=== PATIENT | female | born 1970 | race American Indian/Alaskan Native ===

== ENCOUNTER 2020-06-26 22:10 | Emergency (ER) | payer SELFPAY ==
--- NOTE | 2020-06-27 01:45 | XRay Report ---
CERVICAL SPINE 4 VIEWS INDICATION / CLINICAL INFORMATION: neck pain. COMPARISON: None available. FINDINGS: No fracture, subluxation or other significant abnormality. Signer Name: Kamran Myers MD Signed: 06/27/2020 1:40 AM Workstation Name: [id number]
--- NOTE | 2020-06-27 01:50 | XRay Report ---
LUMBAR SPINE 3 VIEWS INDICATION / CLINICAL INFORMATION: lower back pain. COMPARISON: None available. FINDINGS: The first sacral vertebra is somewhat of a transitional vertebra. No fracture, subluxation or other s ignificant abnormality. Signer Name: Kamran Myers MD Signed: 06/27/2020 1:46 AM Workstation Name: [id number]
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
--- NOTE | 2020-06-27 02:00 | XRay Report ---
LEFT LOWER LEG 4 VIEWS INDICATION / CLINICAL INFORMATION: Left leg pain. COMPARISON: None available. FINDINGS: No skeletal abnormality. No obvious soft tissue lesions. Signer Name: Kamran Myers MD Signed: 06/27/2020 1:56 AM Workstation Name: [id number]
--- NOTE | 2020-06-27 02:01 | XRay Report ---
RIGHT KNEE 3 VIEWS INDICATION / CLINICAL INFORMATION: right knee pain. COMPARISON: None available. FINDINGS: No fracture or other significant skeletal abnormality. No evidence of joint effusion or hemarthrosis. Signer Name: Kamran Myers MD Signed: 06/27/2020 1:56 AM Workstation Name: [id number]
[2020-06-27] MEDS ORDERED: ACETAMINOPHEN 325 MG TAB PO ONE (02:07)
[2020-06-27] MEDS ORDERED: IBUPROFEN 600 MG TAB PO ONE (02:07)
[2020-06-27 02:42] VITALS: BP 120/83
== END 2020-06-27 02:41 | disposition home or self-care (01) ==
LOC: ED 22:10
DX: S83.8X1A Sprain of other specified parts of right knee, initial encounter (principal); M54.5 Low back pain; M62.838 Other muscle spasm; M62.830 Muscle spasm of back; Z98.890 Other specified postprocedural states; Z79.899 Other long term (current) drug therapy; X58.XXXA Exposure to other specified factors, initial encounter; Y93.89 Activity, other specified; Y92.89 Other specified places as the place of occurrence of the external cause; Y99.8 Other external cause status
CPT/HCPCS: 72040; 72100